=== PATIENT | male | born 1960 | race Caucasian/White ===

== ENCOUNTER → 2016-07-12 | Outpatient (CLI) | payer BC ==
[~2016-07-12] VITALS: Ht 190.5 cm; Wt 125.7 kg
[~2016-07-12] MED LIST: ASPCH81X PO; CITA20TA4 PO; GABA-113 PO; LEVO-371 PO; LEVO112T2 PO; LOSA25TA18 PO; MECL1TAB40 PO; METF1TAB85 PO; NAPR1TAB9 PO; PANT40TA PO; PEDICHW34 PO; SIMV10TA2 PO; TRIA0.1O12 TOP; TRIA1SPR2 NAE
[2016-07-12 13:46] VITALS: BP 122/74; PULSE 67; Ht 190.5 cm; Wt 125.7 kg
== END | disposition home or self-care (01) ==
LOC: C.NEUR 13:11
PROVIDERS: ATTEND Internal Medicine Pulmonary Disease
DX: G47.33 Obstructive sleep apnea (adult) (pediatric) (principal)

== ENCOUNTER → 2016-08-04 | Outpatient (CLI) | payer BC ==
--- NOTE | 2016-08-04 15:30 | DIAGNOSTIC IMAGING REPORT ---
RIGHT KNEE RADIOGRAPHS WITH COMPARISON STANDING AP RADIOGRAPH OF THE LEFT KNEE CLINICAL HISTORY: Osteoarthritis of the right knee. COMPARISON: Right knee radiographs September 14, 2015. FINDINGS: Comparison standing AP view of the left knee demonstrates no significant abnormality. Alignment of the right knee is anatomic. There is spurring of the patella at the insertion of the quadriceps and origin of the patellar tendon. No fracture or suspicious lesion is identified. The joint spaces are preserved. There is mild osteophytosis of the lateral and patellofemoral compartments. Evaluation for joint effusion is difficult on this exam but no definite joint effusion is identified. IMPRESSION: 1. Mild arthritis of the right knee with osteophytosis within the lateral and patellofemoral compartments. 2. No acute fractures. Electronically signed by: Dannie Pantoja M.D. 08/04/2016 3:29 PM Dictated Date/Time: 08/04/2016 3:28 PM
== END | disposition home or self-care (01) ==
LOC: C.RDSM 15:00
PROVIDERS: ATTEND Physical Medicine & Rehabilitation Sports Medicine
DX: M19.90 Unspecified osteoarthritis, unspecified site (principal); M17.11 Unilateral primary osteoarthritis, right knee

== ENCOUNTER → 2017-07-10 | Outpatient (CLI) | payer BC, OTHER ==
[~2017-07-10] MED LIST changes: -LEVO-371 PO; +LEVO5TAB2 PO
== END | disposition home or self-care (01) ==
LOC: C.RDSM 17:56
PROVIDERS: ATTEND Physical Medicine & Rehabilitation Sports Medicine
DX: M17.11 Unilateral primary osteoarthritis, right knee (principal)

== ENCOUNTER → 2017-07-18 | Outpatient (CLI) | payer OTHER ==
[~2017-07-18] VITALS: Ht 193 cm; Wt 140.2 kg
[2017-07-18 14:25] VITALS: BP 116/73; PULSE 85; Ht 193 cm; Wt 140.2 kg
== END | disposition home or self-care (01) ==
LOC: C.NEUR 13:24
PROVIDERS: ATTEND Physician Assistant Medical
DX: G47.33 Obstructive sleep apnea (adult) (pediatric) (principal); E66.9 Obesity, unspecified; R53.83 Other fatigue